=== PATIENT | male | born 1985 | race Caucasian/White ===

== ENCOUNTER 2016-08-20 23:58 | Emergency (ER) | payer SELFPAY ==
[2016-08-21] MEDS ORDERED: NORMAL SALINE 1000 ML 1,000 ML IV ONE (00:45)
[2016-08-21] MEDS ORDERED: KETOROLAC TROMETHAMINE INJ/PF 30 MG/1 ML SDV IV ONE (00:45)
[2016-08-21 03:40] VITALS: BP 96/62
== END 2016-08-21 00:45 | disposition left against medical advice (07) ==
LOC: ER 23:58
DX: Z53.21 Procedure and treatment not carried out due to patient leaving prior to being seen by health care provider (principal)

== ENCOUNTER 2016-11-07 20:11 | Emergency (ER) | payer SELFPAY ==
[2016-11-07] MEDS ORDERED: SULFAMETHOXAZOLE/TRIMETHOPRIM 800-160 MG TABLET PO ONE (20:40)
[2016-11-07 20:56] LABS: ABSOLUTE BASOPHILS # (AUTO) 0.1 10^3/uL (0.0-0.2); ABSOLUTE EOSINOPHILS # (AUTO) 0.2 10^3/uL (0.0-0.6); ABSOLUTE LYMPHOCYTES (AUTO) 1.9 10^3/uL (0.5-4.7); ABSOLUTE MONOCYTES (AUTO) 0.3 10^3/uL (0.1-1.4); ABSOLUTE NEUT (AUTO) 2.9 10^3/uL (1.7-8.2); BASOPHILS % (AUTO) 1.3 % (0-2); EOSINOPHILS % (AUTO) 3.9 % (0-6); HEMATOCRIT 36.9 % (37.9-51.0); HEMOGLOBIN 12.8 g/dL (13.5-17.0); HGB HCT DIFFERENCE 1.5; LYMPHOCYTES % (AUTO) 35.4 % (13-45); MEAN CORPUSCULAR HEMOGLOBIN 30.3 pg (27.0-33.4); MEAN CORPUSCULAR HGB CONC 34.6 g/dL (32.0-36.0); MEAN CORPUSCULAR VOLUME 88 fl (80-97); MONOCYTES % (AUTO) 5.7 % (3-13); RED BLOOD COUNT 4.21 10^6/uL (4.35-5.55); RED CELL DISTRIBUTION WIDTH 15.2 % (11.5-14.0); SEGMENTED NEUTROPHILS % (AUTO) 53.7 % (42-78); WHITE BLOOD COUNT 5.3 10^3/uL (4.0-10.5)
--- NOTE | 2016-11-07 21:00 | ER Document Report ---
ED Medical Screen (RME) - General Chief Complaint: Finger Injury Stated Complaint: FINGER PAIN Time Seen by Provider: 11/07/16 20:40 TRAVEL OUTSIDE OF THE [place] IN LAST 30 DAYS: No - HPI Notes: 11/07/16 21:00 Diabetic with a puncture wound to the left index finger - Related Data Allergies/Adverse Reactions: No Known Allergies Allergy (Verified 11/07/16 20:34) Home Medications: Current Home Medications Gabapentin 600 mg PO QID 11/07/16 [History] Insulin Glargine,Hum.rec.anlog [Lantus Insulin Inj 300 Unit/3 ml Pen] 30 unit SUBCUT BID 11/07/16 [History] Insulin Regular, Human [Humulin R (Pyxis) Insulin 100 Unit/ml 3Ml] 10 unit SUBCUT BID 11/07/16 [History] Past Medical History - Social History Chew tobacco use (# tins/day): No Frequency of alcohol use: Occasional Endocrine Medical History: Reports: Hx Diabetes Mellitus Type 1, Hx Diabetes Mellitus Type 2 Renal/ Medical History: Denies: Hx Peritoneal Dialysis Past Surgical History: Reports: Hx Orthopedic Surgery - L ganglion cyst - Immunizations Hx Diphtheria, Pertussis, Tetanus Vaccination: Yes - less than 5 years Review of Systems - Review of Systems Constitutional: Other - Puncture wound left index finger Physical Exam - Vital signs Vitals: Temp Pulse Resp BP Pulse Ox 98.4 F 98 16 137/96 H 99 11/07/16 20:20 11/07/16 20:20 11/07/16 20:20 11/07/16 20:20 11/07/16 20:20 - Respiratory Respiratory status: No respiratory distress Chest status: Nontender Course - Re-evaluation Re-evalutation: 11/07/16 21:00 I have greeted and performed a rapid initial assessment of this patient. A comprehensive ED assessment and evaluation of the patient, analysis of test results and completion of the medical decision making process will be conducted by additional ED providers. - Vital Signs Vital signs: Temp Pulse Resp BP Pulse Ox 98.4 F 98 16 137/96 H 99 11/07/16 20:20 11/07/16 20:20 11/07/16 20:20 11/07/16 20:20 11/07/16 20:20 - Laboratory Result Diagrams: 11/07/16 20:45 11/07/16 20:45 Laboratory results interpreted by me: 11/07/16 20:45 RBC 4.21 L Hgb 12.8 L Hct 36.9 L RDW 15.2 H
[2016-11-07 21:13] LABS: ANION GAP 9 (5-19); BLOOD UREA NITROGEN 18 mg/dL (7-20); CALCIUM 8.8 mg/dL (8.4-10.2); CARBON DIOXIDE 25 mmol/L (22-30); CHLORIDE 100 mmol/L (98-107); CREATININE RESULT 0.84 mg/dL (0.52-1.25); GLUCOSE 356 mg/dL (75-110); POTASSIUM 4.4 mmol/L (3.6-5.0); SODIUM 134.3 mmol/L (137-145)
[2016-11-07] MEDS ORDERED: IBUPROFEN 600 MG TABLET PO ONE (21:43)
[2016-11-07] MEDS ORDERED: CEPHALEXIN 500 MG CAPSULE PO ONE (21:43)
[2016-11-07] MEDS ORDERED: ACETAMINOPHEN 325 MG TABLET PO ONE (21:44)
--- NOTE | 2016-11-07 21:47 | ER Document Report ---
ED General - General Chief Complaint: Finger Injury Stated Complaint: FINGER PAIN Time Seen by Provider: 11/07/16 20:40 Notes: Patient is a 31-year-old male with a history of insulin-dependent diabetes who presents with concerns of left pointer finger pain. States that he sustained an injury using a tool 3 days ago and since that time has had progressively worsening dull, constant, aching pain to the dorsal mid aspect of the digit. Nothing improves or worsens the pain. He has not seen his primary care doctor regarding today's concerns. Denies a history of similar symptoms in the past. Denies any fever or constitutional symptoms. TRAVEL OUTSIDE OF THE [place] IN LAST 30 DAYS: No - Related Data Allergies/Adverse Reactions: No Known Allergies Allergy (Verified 11/07/16 20:34) Home Medications: Current Home Medications Gabapentin 600 mg PO QID 11/07/16 [History] Insulin Glargine,Hum.rec.anlog [Lantus Insulin Inj 300 Unit/3 ml Pen] 30 unit SUBCUT BID 11/07/16 [History] Insulin Regular, Human [Humulin R (Pyxis) Insulin 100 Unit/ml 3Ml] 10 unit SUBCUT BID 11/07/16 [History] Past Medical History - General Information source: Patient - Social History Smoking Status: Current Every Day Smoker Chew tobacco use (# tins/day): No Frequency of alcohol use: Occasional Lives with: Spouse/Significant other Family History: Reviewed & Not Pertinent Patient has suicidal ideation: No Patient has homicidal ideation: No Endocrine Medical History: Reports: Hx Diabetes Mellitus Type 1, Hx Diabetes Mellitus Type 2 Renal/ Medical History: Denies: Hx Peritoneal Dialysis Past Surgical History: Reports: Hx Orthopedic Surgery - L ganglion cyst - Immunizations Hx Diphtheria, Pertussis, Tetanus Vaccination: Yes - less than 5 years Review of Systems - Review of Systems Notes: Constitutional: Negative for fever. HENT: Negative for sore throat. Eyes: Negative for visual changes. Cardiovascular: Negative for chest pain. Respiratory: Negative for shortness of breath. Gastrointestinal: Negative for abdominal pain, vomiting or diarrhea. Genitourinary: Negative for dysuria. Musculoskeletal: Positive for left pointer finger pain Skin: Negative for rash. Neurological: Negative for headaches, weakness or numbness. 10 point ROS negative except as marked above and in HPI. Physical Exam - Vital signs Vitals: Temp Pulse Resp BP Pulse Ox 98.4 F 98 16 137/96 H 99 11/07/16 20:20 11/07/16 20:20 11/07/16 20:20 11/07/16 20:20 11/07/16 20:20 Interpretation: Normal Notes: PHYSICAL EXAMINATION: GENERAL: Well-appearing, well-nourished and in no acute distress. HEAD: Atraumatic, normocephalic. EYES: Pupils equal round and reactive to light, extraocular movements intact, sclera anicteric, conjunctiva are normal. ENT: nares patent, oropharynx clear without exudates. Moist mucous membranes. NECK: Normal range of motion, supple without lymphadenopathy LUNGS: Breath sounds clear to auscultation bilaterally and equal. No wheezes rales or rhonchi. HEART: Regular rate and rhythm without murmurs ABDOMEN: Soft, nontender, normoactive bowel sounds. No guarding, no rebound. No masses appreciated. EXTREMITIES: Full flexion extension at the DIP, PIP and MCP of the left second digit. No resting flexion or extension. No circumstantial swelling. NEUROLOGICAL: No focal neurological deficits. Moves all extremities spontaneously and on command. PSYCH: Normal mood, normal affect. SKIN: Warm, Dry, normal turgor, there is mild erythema over the dorsal aspect of the left second digit and pain on palpation of this area Course - Re-evaluation Re-evalutation: 11/07/16 21:45 Patient presents with erythema and pain to the left second digit on the radial aspect of the base the finger just above the MCP. No evidence of flexor tenosynovitis. He is able to fully extend the digit, is not resting flexion and there is no circumferential swelling. No pain over the flexor sheath. Vitals otherwise within normal limits. Labs demonstrate hyperglycemia without evidence of diabetic ketoacidosis. Patient was started cephalexin and TMP-SMX. X-ray without evidence of retained foreign body. At this time will discharge with return precautions and follow-up recommendations. Verbal discharge instructions given a the bedside and opportunity for questions given. Medication warnings reviewed. Patient is in agreement with this plan and has verbalized understanding of return precautions and the need for primary care follow-up in the next 24-72 hours. - Vital Signs Vital signs: Temp Pulse Resp BP Pulse Ox 98.1 F 96 18 117/64 95 11/07/16 22:49 11/07/16 22:49 11/07/16 22:49 11/07/16 22:49 11/07/16 22:49 - Laboratory Result Diagrams: 11/07/16 20:45 11/07/16 20:45 Laboratory results interpreted by me: 11/07/16 11/07/16 11/07/16 20:45 20:45 22:42 RBC 4.21 L Hgb 12.8 L Hct 36.9 L RDW 15.2 H Sodium 134.3 L Glucose 356 H POC Glucose 64 L - Diagnostic Test Radiology reviewed: Image reviewed, Reports reviewed Radiology results interpreted by me: 11/07/16 21:47 Left hand x-ray: No acute fracture or retained foreign body Discharge - Discharge Clinical Impression: Cellulitis of finger of left hand Condition: Good Disposition: HOME, SELF-CARE Additional Instructions: The rash is likely due to infection of your skin. You need to take the antibiotics as prescribed. Do not stop even if the rash goes away until you have completed all the antibiotics. You need to return to emergency department if the redness spreads outside of this area by more than 2 cm in any direction. You also need to return if your finger is unable to be straightened, worsening pain, or increased swelling to the digit You should also return if you develop fevers with temperature greater than 101, persistent vomiting, worsening pain, or have any other symptoms that are concerning to you. For your pain: Take ibuprofen 600 mg with Tylenol 1000 mg every 6 hours. Apply ice to the area as needed for pain that is not controlled by ibuprofen with Tylenol Prescriptions: Cephalexin Monohydrate [Keflex 500 mg Capsule] 500 mg PO QID #28 capsule Sulfamethoxazole/Trimethoprim [Bactrim Ds Tablet] 1 each PO BID #14 tablet
[2016-11-07 23:43] VITALS: BP 117/64
== END 2016-11-07 22:52 | disposition home or self-care (01) ==
LOC: ER 20:11
DX: L03.012 Cellulitis of left finger (principal); M79.645 Pain in left finger(s); E11.65 Type 2 diabetes mellitus with hyperglycemia; Z79.4 Long term (current) use of insulin; F17.200 Nicotine dependence, unspecified, uncomplicated
CPT/HCPCS: 36415; 80048; 82962; 85025; 87040; 99283

== ENCOUNTER 2018-04-03 18:39 | Inpatient (IN) | payer SELFPAY ==
[2018-04-03] MEDS ORDERED: RINGERS SOLUTION,LACTATED 2,000 ML IV ONE (19:53)
[2018-04-03] MEDS ORDERED: ONDANSETRON HCL INJ/PF 4 MG/2 ML SDV IV ONE ×2 (19:54→22:42)
[2018-04-03 20:00] LABS: VENOUS BLOOD BASE EXCESS -17.3 mmol/L; VENOUS BLOOD HCO3 11.3 mmol/L (20-32); VENOUS BLOOD PCO2 36.1 mmHg (35-63)
[2018-04-03 20:01] LABS: ABSOLUTE BASOPHILS # (AUTO) 0.1 10^3/uL (0.0-0.2); ABSOLUTE LYMPHOCYTES (AUTO) 1.5 10^3/uL (0.5-4.7); ABSOLUTE MONOCYTES (AUTO) 0.9 10^3/uL (0.1-1.4); ABSOLUTE NEUT (AUTO) 13.5 10^3/uL (1.7-8.2); BASOPHILS % (AUTO) 0.4 % (0-2); HEMATOCRIT 44.7 % (37.9-51.0); HEMOGLOBIN 14.8 g/dL (13.5-17.0); LYMPHOCYTES % (AUTO) 9.3 % (13-45); MEAN CORPUSCULAR HEMOGLOBIN 31.3 pg (27.0-33.4); MEAN CORPUSCULAR HGB CONC 33.1 g/dL (32.0-36.0); MEAN CORPUSCULAR VOLUME 95 fl (80-97); MONOCYTES % (AUTO) 5.9 % (3-13); PLATELET COUNT 607 10^3/uL (150-450); RED BLOOD COUNT 4.73 10^6/uL (4.35-5.55); RED CELL DISTRIBUTION WIDTH 14.5 % (11.5-14.0); SEGMENTED NEUTROPHILS % (AUTO) 84.4 % (42-78); TOTAL CELLS COUNTED % (AUTO) 100 %; WHITE BLOOD COUNT 16.1 10^3/uL (4.0-10.5)
--- NOTE | 2018-04-03 20:04 | ER Document Report ---
ED Blood Sugar Problem - General TRAVEL OUTSIDE OF THE [place] IN LAST 30 DAYS: No <CLARIBEL TAYLOR - Last Filed: 04/03/18 23:19> <JHOANA AREVALO - Last Filed: 04/04/18 02:40> - General Chief Complaint: High Blood Sugar Stated Complaint: ABDOMINAL PAIN Time Seen by Provider: 04/03/18 19:33 Notes: Patient is a 33 year-old male who presents with a 3 day history of nausea and vomiting and is now stating he is having abdominal pain possibly due to his blood sugars being high. He is an insulin dependent diabetic who states he is currently taking his medications as prescribed. He stated he has not checked his blood sugar these past few days, so he does not know what his recent blood sugars have been. His accucheck this evening read "HI." Patient also states he has a history of IV drug abuse, but states he is not currently using. Patient denies fever or chills. (CLARIBEL TAYLOR) Patient described the pain as constant in nature, and non-radiating, and rated 4 /5. He had associated nausea and vomiting with this symptoms. (JHOANA AREVALO) - Related Data Allergies/Adverse Reactions: No Known Allergies Allergy (Verified 11/07/16 20:34) Past Medical History - General Information source: Patient - Social History Smoking Status: Current Every Day Smoker Smoking Education Provided: Yes - <3 min Frequency of alcohol use: Social Lives with: Alone Family History: Reviewed & Not Pertinent Endocrine Medical History: Reports: Hx Diabetes Mellitus Type 1 Renal/ Medical History: Denies: Hx Peritoneal Dialysis Past Surgical History: Reports: Hx Orthopedic Surgery - L ganglion cyst - Immunizations Hx Diphtheria, Pertussis, Tetanus Vaccination: Yes - less than 5 years <CLARIBEL TAYLOR - Last Filed: 04/03/18 23:19> Review of Systems - Review of Systems Constitutional: See HPI EENT: No symptoms reported Cardiovascular: No symptoms reported Respiratory: No symptoms reported Gastrointestinal: See HPI Genitourinary: No symptoms reported Male Genitourinary: No symptoms reported Musculoskeletal: No symptoms reported Skin: No symptoms reported Hematologic/Lymphatic: No symptoms reported Neurological/Psychological: No symptoms reported <CLARIBEL TAYLOR - Last Filed: 04/03/18 23:19> <JHOANA AREVALO - Last Filed: 04/04/18 02:40> - Review of Systems Notes: Unless otherwise stated in this report the patient's positive and negative responses for review of systems for constitutional, eyes, ENT, cardiovascular, respiratory, gastrointestinal, neurological, genitourinary, musculoskeletal, and integumentary systems and related systems to the presenting problem are either as stated in the HPI or were not pertinent or were negative for the symptoms and/or complaints related to the presenting medical problem. (JHOANA AREVALO) - Vital signs Vitals: Temp Pulse Resp BP Pulse Ox 97.7 F 108 H 20 122/80 100 04/03/18 19:02 04/03/18 19:02 04/03/18 19:02 04/03/18 19:02 04/03/18 19:02 Course - Laboratory Result Diagrams: 04/03/18 19:44 04/03/18 19:44 <CLARIBEL TAYLOR - Last Filed: 04/03/18 23:19> - Laboratory Result Diagrams: 04/03/18 19:44 04/03/18 19:44 <JHOANA AREVALO - Last Filed: 04/04/18 02:40> - Re-evaluation Re-evalutation: 04/03/18 20:30 Patient appears critically ill at this time with a heart rate tachycardic in the 120s. Labs have been reviewed with a pH of 7.11, bicarb of 11.3, potassium of 6.6. BUN and creatinine shows acute renal insufficiency with a BUN of 43 and a creatinine of 1.49. Patient shows a leukocytosis of 16, 000. 04/03/18 20:45 Upon reevaluation patient was lying comfortably in bed. Patient stated his abdominal pain has improved. Labs have been reviewed and insulin drip has been ordered along with calcium gluconate for hyperkalemia. 04/03/18 22:23 Nursing staff informed me that patient's Accu-Chek was still high. Verbal orders given to increase insulin drip to 8.8 units/h. 20-gauge IV started in the right forearm. 04/03/18 22:38 Report given to hospitalist, Dr. Neville. Patient has been accepted to ICU. (CLARIBEL TAYLOR) - Vital Signs Vital signs: Temp Pulse Resp BP Pulse Ox 98.5 F 120 H 16 121/93 H 100 04/04/18 00:55 04/04/18 00:55 04/04/18 00:55 04/04/18 00:55 04/04/18 00:55 - Laboratory Laboratory results interpreted by me: 04/03/18 04/03/18 04/03/18 19:44 19:44 19:44 WBC 16.1 H RDW 14.5 H Plt Count 607 H Seg Neutrophils % 84.4 H Lymphocytes % 9.3 L Absolute Neutrophils 13.5 H VBG pH 7.11 L* VBG HCO3 11.3 L Sodium 129.5 L Potassium 6.6 H* Chloride 83 L Carbon Dioxide 11 L Anion Gap 36 H BUN 43 H Creatinine 1.49 H Est GFR (Non-Af Amer) 55 L Glucose 935 H* Direct Bilirubin 0.6 H Alkaline Phosphatase 138 H Urine Glucose (UA) Urine Ketones 04/03/18 22:28 WBC RDW Plt Count Seg Neutrophils % Lymphocytes % Absolute Neutrophils VBG pH VBG HCO3 Sodium Potassium Chloride Carbon Dioxide Anion Gap BUN Creatinine Est GFR (Non-Af Amer) Glucose Direct Bilirubin Alkaline Phosphatase Urine Glucose (UA) >=500 H Urine Ketones 80 H - EKG Interpretation by Me Additional EKG results interpreted by me: 04/03/18 1946: Sinus tachycardia. Rate 107; AK 148; QRS 92; QT 340; QTC 454. (CLARIBEL TAYLOR) Critical Care Note - Critical Care Note Total time excluding time spent on procedures (mins): 40 - DKA; hyperkalemia; acute renal insufficiency <CLARIBEL TAYLOR - Last Filed: 04/03/18 23:19> <JHOANA AREVALO - Last Filed: 04/04/18 02:40> - Critical Care Note Comments: Please allow 40 units of critical care time due to multiple re-evaluations of this patient. Patient's emergency course included insulin drip, rehydration, and calcium gluconate infusion to treat his hyperkalemia, DKA, acute renal insufficiency. Consultation and admission to ICU. (CLARIBEL TAYLOR) Critical care time 40 exclusive from separate billable procedures for a patient requiring complex medical decision making, and high potential for clinical deterioration. Time spent obtaining history from patient or surrogate, discussions with consultants, development of treatment plan with patient or surrogate, evaluation of patient's response to treatment, examination of patient , ordering and performing treatments and interventions, ordering and review of laboratory studies, re-evaluation of patient's condition, ordering and review of radiographic studies and review of old charts (JHOANA AREVALO) Discharge - Discharge Admitting Provider: Hospitalist Unit Admitted: ICU <CLARIBEL TAYLOR - Last Filed: 04/03/18 23:19> <JHOANA AREVALO - Last Filed: 04/04/18 02:40> - Discharge Clinical Impression: Hyperkalemia, Tachycardia, Acute renal insufficiency Diabetic ketoacidosis Qualifiers: Diabetes mellitus type: type 1 Diabetes mellitus complication detail: without coma Qualified Code(s): E10.10 - Type 1 diabetes mellitus with ketoacidosis without coma Vomiting Qualifiers: Vomiting type: unspecified Vomiting Intractability: non-intractable Nausea presence: with nausea Qualified Code(s): R11.2 - Nausea with vomiting, unspecified Condition: Critical Disposition: ADMITTED INPATIENT
[2018-04-03 20:07] LABS: VENOUS BLOOD PH 7.11 (7.30-7.42)
[2018-04-03 20:15] LABS: ALANINE AMINOTRANSFERASE 48 U/L (21-72); ALBUMIN 4.7 g/dL (3.5-5.0); ALKALINE PHOSPHATASE 138 U/L (38-126); ASPARTATE AMINO TRANSFERASE 26 U/L (17-59); BILIRUBIN,DIRECT 0.6 mg/dL (0.0-0.4); BILIRUBIN,TOTAL 0.7 mg/dL (0.2-1.3); BLOOD UREA NITROGEN 43 mg/dL (7-20); CALCIUM 9.9 mg/dL (8.4-10.2); TOTAL PROTEIN 7.4 g/dL (6.3-8.2)
[2018-04-03 20:20] LABS: CARBON DIOXIDE 11 mmol/L (22-30); CHLORIDE 83 mmol/L (98-107); SODIUM 129.5 mmol/L (137-145)
[2018-04-03 20:23] LABS: ANION GAP 36 (5-19)
[2018-04-03 20:27] LABS: GLUCOSE 935 mg/dL (75-110); POTASSIUM 6.6 mmol/L (3.6-5.0)
[2018-04-03] MEDS ORDERED: INSULIN REG, HUMAN 100 UNIT/ML 3 ML VIAL (PYX) IV ONE ×2 (20:27→23:46)
[2018-04-03] MEDS ORDERED: CALCIUM GLUCONATE 1000 MG/10 ML INJ IV ONE (20:29)
[2018-04-03] MEDS ORDERED: RINGERS SOLUTION,LACTATED 1,000 ML IV PRN (22:39)
[2018-04-03] MEDS ORDERED: NORMAL SALINE 1000 ML 1,000 ML IV PRN (22:41)
[2018-04-03 22:42] LABS: APPEARANCE,URINE CLEAR; BILIRUBIN,URINE NEGATIVE (NEGATIVE); COLOR,URINE STRAW; GLUCOSE, URINE >=500 mg/dL (NEGATIVE); KETONES,URINE 80 mg/dL (NEGATIVE); LEUKOCYTE ESTERASE,URINE NEGATIVE (NEGATIVE); NITRITE,URINE NEGATIVE (NEGATIVE); PROTEIN,URINE NEGATIVE (NEGATIVE); URINE SPECIFIC GRAVITY 1.022; UROBILINOGEN,URINE NEGATIVE mg/dL (<2.0)
[2018-04-03] MEDS ORDERED: FAMOTIDINE INJ/PF 20 MG/2 ML SDV IV ONE (23:00)
--- NOTE | 2018-04-03 23:16 | RADIOLOGY REPORT (SQ) ---
Portable chest HISTORY: Shortness of breath. FINDINGS: The heart is not enlarged. No consolidation or pleural effusion. No pulmonary edema or pneumothorax. IMPRESSION: No acute disease.
[2018-04-03] MEDS ORDERED: INSULIN REG, HUMAN 100 UNIT/ML 3 ML VIAL (PYX) SUBCUT ONE (23:46)
[2018-04-04] MEDS ORDERED: DEXTROSE 5%-1/2 NORMAL SALINE 1,000 ML IV PRN (03:14)
[2018-04-04 03:28] LABS: BLOOD UREA NITROGEN 49 mg/dL (7-20); CALCIUM 10.2 mg/dL (8.4-10.2); GLUCOSE 189 mg/dL (75-110)
[2018-04-04 03:33] LABS: CHLORIDE 97 mmol/L (98-107); SODIUM 141.5 mmol/L (137-145)
[2018-04-04] MEDS ORDERED: DEXTROSE 40% GEL 15 GM TUBE PO PRN ×3 (03:34→09:58)
[2018-04-04] MEDS ORDERED: DEXTROSE 50%-WATER SYRINGE 25 GM/50 ML DOSE IV PRN (03:34)
[2018-04-04] MEDS ORDERED: DEXTROSE 40% GEL 15 GM TUBE X 2 PO PRN (03:34)
[2018-04-04] MEDS ORDERED: INSULIN, REGULAR 100 UNIT/100 ML NORMAL SALINE IV PRN ×2 (03:34)
[2018-04-04] MEDS ORDERED: DEXTROSE 50%-WATER SYRINGE 12.5 GM/25 ML DOSE IV PRN (03:34)
[2018-04-04] MEDS ORDERED: GLUCAGON,HUMAN RECOMB 1 MG INJ IM PRN ×2 (03:34→09:58)
[2018-04-04 03:38] LABS: ANION GAP 22 (5-19); POTASSIUM 4.8 mmol/L (3.6-5.0)
[2018-04-04 04:03] LABS: CARBON DIOXIDE 23 mmol/L (22-30)
[2018-04-04 06:15] LABS: URINE AMPHETAMINES SCREEN NEGATIVE; URINE BARBITURATES SCREEN NEGATIVE; URINE BENZODIAZEPINES SCREEN NEGATIVE; URINE COCAINE SCREEN NEGATIVE; URINE MARIJUANA (THC) SCREEN NEGATIVE; URINE METHADONE SCREEN NEGATIVE; URINE PHENCYCLIDINE SCREEN NEGATIVE
[2018-04-04 09:23] LABS: ANION GAP 14 (5-19); BLOOD UREA NITROGEN 46 mg/dL (7-20); CALCIUM 9.7 mg/dL (8.4-10.2); CARBON DIOXIDE 31 mmol/L (22-30); CHLORIDE 96 mmol/L (98-107); GLUCOSE 147 mg/dL (75-110); POTASSIUM 4.4 mmol/L (3.6-5.0); SODIUM 141.2 mmol/L (137-145)
[2018-04-04] MEDS ORDERED: DEXTROSE 50%-WATER 25 GM/50 ML DISP.SYRIN IV PRN ×2 (09:58)
[2018-04-04] MEDS ORDERED: FAMOTIDINE INJ/PF 20 MG/2 ML SDV IV SCH (10:00)
--- NOTE | 2018-04-04 10:27 | PDOC PROGRESS REPORT ---
Subjective Progress Note for:: 04/04/18 Subjective:: Patient is a 33 year-old male who presented with a 3 day history of nausea and vomiting and abdominal pain. He described the pain as a constant, non-radiating , deep aching of 8/10severity. He has not identified any aggravating or ameliorating factors for his abdominal pain, but admits that he has had similar pain in the past when he has developed diabetic ketoacidosis. He had associated nausea and vomiting with this symptoms, but he denies fever or chills. He is an insulin dependent diabetic who states he is currently taking his insulins as prescribed. He has not checked his blood sugar for the 3-4 days MILK TESTER, but his accucheck just MILK TESTER read "HI." He has a history of IV drug abuse, but he is not currently using. 04/04/18: Umair is awake and alert today and states he is hungry and would really like to have something to eat and drink. He feels like he is back to his usual self and his blood sugar has been under 200 for the last several readings. His insulin drip will be discontinued he will be started on a regular diabetic diet (carb 5) and will resume his usual insulin regiment with 6 units of lispro prior to meals and at bedtime and 30 units of Lantus twice daily. He will also be maintained on a supplemental sliding scale lispro before meals and at bedtime. His activity level will be increased and if he continues to feel well he will be discharged later today or tomorrow. Reason For Visit: DKA Physical Exam Vital Signs: Temp Pulse Resp BP Pulse Ox 98.1 F 120 H 12 118/83 100 04/04/18 05:09 04/04/18 00:55 04/04/18 06:00 04/04/18 04:49 04/04/18 06:00 Intake & Output 04/03/18 04/04/18 04/05/18 06:59 06:59 06:59 Intake Total 48 Output Total 300 Balance -252 Weight 63.7 kg General appearance: PRESENT: no acute distress, cooperative Head exam: PRESENT: atraumatic, normocephalic Eye exam: PRESENT: conjunctiva pink, EOMI. ABSENT: conjunctival injection, nystagmus, periorbital swelling, scleral icterus Ear exam: PRESENT: normal external ear exam. ABSENT: bleeding, drainage Mouth exam: PRESENT: dry mucosa, tongue midline Neck exam: ABSENT: thyromegaly, tracheal deviation Respiratory exam: PRESENT: clear to auscultation aris, symmetrical, unlabored Cardiovascular exam: PRESENT: RRR. ABSENT: bradycardia, clicks, diastolic murmur, gallop, rubs, systolic murmur, tachycardia Vascular exam: PRESENT: normal capillary refill. ABSENT: pallor GI/Abdominal exam: PRESENT: normal bowel sounds, soft Rectal exam: PRESENT: deferred Extremities exam: ABSENT: joint swelling, pedal edema Musculoskeletal exam: PRESENT: full ROM, normal inspection - [id number] Neurological exam: PRESENT: alert, oriented to person, oriented to place, oriented to time, oriented to situation, CN II-XII grossly intact. ABSENT: motor sensory deficit - [id number] Psychiatric exam: PRESENT: appropriate affect, normal mood Skin exam: ABSENT: jaundice, rash, urticaria Results Laboratory Results: 04/04/18 08:48 04/04/18 04/04/18 02:57 08:48 Sodium 141.5 141.2 Potassium 4.8 D 4.4 Chloride 97 L 96 L Carbon Dioxide 23 D 31 H Anion Gap 22 H 14 BUN 49 H 46 H Creatinine 1.19 1.05 Est GFR ( Amer) > 60 > 60 Est GFR (Non-Af Amer) > 60 > 60 Glucose 189 H 147 H Calcium 10.2 9.7 Impressions: Chest X-Ray 04/03/18 22:33 IMPRESSION: No acute disease. Assessment & Plan - Diagnosis (1) Diabetic ketoacidosis Qualifiers: Diabetes mellitus type: type 1 Diabetes mellitus complication detail: without coma Qualified Code(s): E10.10 - Type 1 diabetes mellitus with ketoacidosis without coma Is this a current diagnosis for this admission?: Yes Plan: Patient was treated initially with an insulin drip and then subsequently added IV fluids containing dextrose to accompany his insulin drip. His blood sugar stabilized and his electrolytes returned to a normal balance over the first 12 hours of treatment. His aggressive therapy will be discontinued today and he will be started back on a diabetic diet with his usual insulin regimen as well as sliding scale supplemental insulin if needed. We will continue to monitor his blood sugar and will monitor his lab work on a daily basis for as long as he is hospitalized. Discharge may be planned as early as 04/04/2018. (2) Acute renal insufficiency Is this a current diagnosis for this admission?: Yes Plan: Patient's creatinine was noted to be elevated at 1.46 on admission and it has returned to normal levels after IV rehydration. This will be followed with daily laboratory for as long as patient is hospitalized. (3) Hyperkalemia Is this a current diagnosis for this admission?: Yes Plan: Patient's potassium was elevated as would be expected in acute diabetic ketoacidosis and has returned to normal values with rehydration and correction of the severe hyperglycemia. Potassium level will be monitored on a daily basis throughout the patient's hospitalization. (4) Tachycardia Is this a current diagnosis for this admission?: Yes Plan: Patient was initially tachycardic however after IV fluid support to replace his vascular volume his tachycardia has resolved his vital signs have remained stable. Patient's vital signs will be monitored on an ongoing basis during the rest of his hospitalization. (5) Vomiting Qualifiers: Vomiting type: unspecified Vomiting Intractability: non-intractable Nausea presence: with nausea Qualified Code(s): R11.2 - Nausea with vomiting, unspecified Is this a current diagnosis for this admission?: Yes Plan: Patient's nausea and vomiting were treated with intravenous vascular volume replenishment as well as reduction and severe hyperglycemia. Additionally he was given antiemetics and he has responded well to this combination of therapies with the return of his appetite and strong desire to consume oral fluids. Patient will have as needed antiemetic available throughout the remainder of his hospital course. - Time Time Spent with patient: 35 or more minutes Anticipated discharge: Home Within: within 24 hours
--- NOTE | 2018-04-04 10:51 | Physician Advisory Note ---
Physician Advisor ProgressNote .: Pursuant to the plan for [facility], I have reviewed the medical record for this patient. Physician Advisor Statement: Please consider documenting, if you agree: 1. "Acute Kidney Injury due to ___, baseline Cr = 0.84" (saying "___ insufficiency" is meaningless for coding, does not capture the true degree of illness being managed) Thanks! We appreciate your careful documentation. CK
[2018-04-04] MEDS ORDERED: INSULIN GLARGINE,HUM.REC.ANLOG 300 UNIT/3 ML INSULN.PEN SUBCUT SCH (11:00)
[2018-04-04] MEDS ORDERED: INSULIN LISPRO 6 UNIT SQ SCH (11:00)
--- NOTE | 2018-04-04 11:12 | EKG REPORT ---
SEVERITY:- OTHERWISE NORMAL ECG - SINUS TACHYCARDIA : Confirmed by: Mikayla Gardner 04-Apr-2018 11:11:38
[2018-04-04] MEDS: INSULIN GLARGINE,HUM.REC.ANLOG 1,000 UNIT/10 ML UNIT SUBCUT SCH ×2 (11:40→22:57)
[2018-04-04] MEDS: ENOXAPARIN SODIUM INJ 40 MG/0.4 ML DISP.SYRIN SUBCUT SCH (11:40)
[2018-04-04] MEDS: INSULIN LISPRO 100 UNIT/ML 3 ML VIAL SUBCUT SCH ×3 (11:41→22:58)
[2018-04-04] MEDS: INSULIN LISPRO 100 UNIT/ML 3 ML VIAL SUBCUT PRN ×2 (11:42→17:46)
[2018-04-04] MEDS ORDERED: MORPHINE SULFATE 10 MG/ML INJ ONE (12:07)
[2018-04-04 13:38] LABS: ANION GAP 16 (5-19); BLOOD UREA NITROGEN 36 mg/dL (7-20); CALCIUM 8.9 mg/dL (8.4-10.2); CARBON DIOXIDE 27 mmol/L (22-30); CHLORIDE 91 mmol/L (98-107); GLUCOSE 367 mg/dL (75-110); POTASSIUM 4.8 mmol/L (3.6-5.0); SODIUM 134.1 mmol/L (137-145)
[2018-04-04 17:40] LABS: ANION GAP 10 (5-19); BLOOD UREA NITROGEN 30 mg/dL (7-20); CALCIUM 8.7 mg/dL (8.4-10.2); CARBON DIOXIDE 29 mmol/L (22-30); CHLORIDE 90 mmol/L (98-107); POTASSIUM 4.9 mmol/L (3.6-5.0); SODIUM 129.3 mmol/L (137-145)
[2018-04-04] MEDS: MORPHINE SULFATE 10 MG/ML INJ IV PRN ×2 (17:46→21:58)
[2018-04-04 17:55] LABS: GLUCOSE 404 mg/dL (75-110)
[2018-04-04] MEDS: FAMOTIDINE 20 MG TABLET PO SCH (18:00)
[2018-04-04] MEDS: LANSOPRAZOLE 30 MG TAB.RAP.DR PO SCH (18:00)
--- NOTE | 2018-04-04 20:55 | PDOC H&P ---
History of Present Illness Admission Date/PCP: 04/03/18 22:50 Patient complains of: Elevated blood sugars History of Present Illness: KWABENA DONOVAN JR is a 33 year old male presenting to the emergency department secondary to 3-day history of nausea and vomiting. States he is a long- standing diabetic but acknowledges being noncompliant with his regimen. States nausea and vomiting has been associated with abdominal pain that is generalized and diffuse, nonradiating, constant in nature, rated 3 out of 5. States blood sugar readings have been registering as "high". Patient is agitated, and uncooperative. Has a past medical history of IV drug abuse but states he is not currently using any illicit substances. Is alert oriented x3. Denies fever , denies chills. Past Medical History Endocrine Medical History: Reports: Diabetes Mellitus Type 1, Diabetes Mellitus Type 2 Past Surgical History Past Surgical History: Reports: Orthopedic Surgery - L ganglion cyst Social History Information Source: Patient Lives with: Alone Smoking Status: Current Every Day Smoker Cigarettes Packs Per Day: 1 Last Time Smoked: 04/03/18 Frequency of Alcohol Use: Occasional Hx Recreational Drug Use: Yes Drugs: Marijuana, Methadone Hx Prescription Drug Abuse: No Family History Family History: Reviewed & Not Pertinent Parental Family History Reviewed: No Children Family History Reviewed: No Sibling(s) Family History Reviewed.: No Medication/Allergy Home Medications: Insulin Glargine,Hum.rec.anlog [Lantus Insulin Inj 300 Unit/3 ml Pen] 30 unit SUBCUT Q12 04/04/18 Insulin Lispro [Humalog] 6 unit SQ QID 04/04/18 Allergies/Adverse Reactions: No Known Allergies Allergy (Verified 11/07/16 20:34) Review of Systems Constitutional: PRESENT: fatigue, weakness. ABSENT: chills, fever(s) Gastrointestinal: PRESENT: abdominal pain, nausea, vomiting Musculoskeletal: ABSENT: back pain Neurological: ABSENT: abnormal gait, confusion, numbness, tingling Physical Exam Vital Signs: Temp Pulse Resp BP Pulse Ox 99.7 F 90 18 135/85 H 100 04/04/18 18:11 04/04/18 12:55 04/04/18 18:00 04/04/18 17:49 04/04/18 18:00 Intake & Output 04/03/18 04/04/18 04/05/18 06:59 06:59 06:59 Intake Total 48 3014 Output Total 300 600 Balance -252 2414 Weight 63.7 kg General appearance: PRESENT: mild distress - agitated Head exam: PRESENT: atraumatic, normocephalic Eye exam: PRESENT: conjunctiva pink, EOMI, PERRLA. ABSENT: scleral icterus Mouth exam: PRESENT: dry mucosa, tongue midline. ABSENT: laceration Neck exam: ABSENT: carotid bruit, JVD, lymphadenopathy, thyromegaly Respiratory exam: PRESENT: clear to auscultation aris. ABSENT: rales, rhonchi, wheezes Cardiovascular exam: PRESENT: +S1, +S2, tachycardia. ABSENT: diastolic murmur, rubs, systolic murmur GI/Abdominal exam: PRESENT: normal bowel sounds, soft, tenderness. ABSENT: distended, guarding, mass, organolmegaly, rebound Extremities exam: PRESENT: full ROM. ABSENT: calf tenderness, clubbing, pedal edema Neurological exam: PRESENT: alert, awake, oriented to person, oriented to place , oriented to time, oriented to situation, CN II-XII grossly intact. ABSENT: motor sensory deficit Psychiatric exam: PRESENT: agitated Results Laboratory Results: 04/04/18 17:03 04/04/18 04/04/18 04/04/18 02:57 08:48 13:07 Sodium 141.5 141.2 134.1 L Potassium 4.8 D 4.4 4.8 Chloride 97 L 96 L 91 L Carbon Dioxide 23 D 31 H 27 Anion Gap 22 H 14 16 BUN 49 H 46 H 36 H Creatinine 1.19 1.05 0.90 Est GFR ( Amer) > 60 > 60 > 60 Est GFR (Non-Af Amer) > 60 > 60 > 60 Glucose 189 H 147 H 367 H Calcium 10.2 9.7 8.9 04/04/18 17:03 Sodium 129.3 L Potassium 4.9 Chloride 90 L Carbon Dioxide 29 Anion Gap 10 BUN 30 H Creatinine 0.81 Est GFR ( Amer) > 60 Est GFR (Non-Af Amer) > 60 Glucose 404 H* Calcium 8.7 Impressions: Chest X-Ray 04/03/18 22:33 IMPRESSION: No acute disease. Assessment & Plan - Diagnosis (1) Diabetic ketoacidosis Qualifiers: Diabetes mellitus type: type 1 Diabetes mellitus complication detail: without coma Qualified Code(s): E10.10 - Type 1 diabetes mellitus with ketoacidosis without coma Is this a current diagnosis for this admission?: Yes (2) Acute renal insufficiency Is this a current diagnosis for this admission?: Yes (3) Hyperkalemia Is this a current diagnosis for this admission?: Yes (4) Vomiting Qualifiers: Vomiting type: unspecified Vomiting Intractability: non-intractable Nausea presence: with nausea Qualified Code(s): R11.2 - Nausea with vomiting, unspecified Is this a current diagnosis for this admission?: Yes - Time Time Spent: 50 to 70 Minutes Smoking Cessation Education: 3 to 10 minutes Medications reviewed and adjusted accordingly: Yes Anticipated discharge: Home Within: Other - Inpatient Certification Medical Necessity: Need Close Monitoring Due to Risk of Patient Decompensation - Plan Summary Plan Summary: 33-year-old male to be admitted to ICU secondary to DKA. Continue volume resuscitation and frequent blood sugar checks. Patient currently on insulin drip which was initiated in the emergency department, to be titrated to maintain blood sugars between 150 and 250. Will switch patient over to D5 half NS with supplemental potassium. I will give the patient to start eating once blood sugars between 150-250. BMP every 4h. Patient is extremely agitated, no family present at bedside. Patient is planning to leave AGAINST MEDICAL ADVICE. Continue with Zofran as needed nausea, vomiting. Tylenol as needed pain, fever. Patient will need diabetic education upon discharge. We will continue to monitor closely and adjust accordingly. Tobacco cessation highly encouraged.
[2018-04-04 21:50] LABS: ANION GAP 12 (5-19); BLOOD UREA NITROGEN 26 mg/dL (7-20); CALCIUM 9.1 mg/dL (8.4-10.2); CARBON DIOXIDE 29 mmol/L (22-30); CHLORIDE 92 mmol/L (98-107); GLUCOSE 139 mg/dL (75-110); POTASSIUM 4.4 mmol/L (3.6-5.0); SODIUM 133.3 mmol/L (137-145)
[2018-04-04] MEDS ORDERED: CEFTRIAXONE 1 GM/D5W RTU 1 GM/50 ML RTUPB IV ONE (23:00)
[2018-04-05] MEDS ORDERED: CEFTRIAXONE INJ 1000 MG VIAL ONE (00:19)
[2018-04-05] MEDS: MORPHINE SULFATE 10 MG/ML INJ IV PRN ×6 (01:39→21:51)
[2018-04-05] MEDS: LANSOPRAZOLE 30 MG TAB.RAP.DR PO SCH ×4 (05:38→21:51)
[2018-04-05] MEDS ORDERED: CEFTRIAXONE 1 GM/D5W RTU 1 GM/50 ML RTUPB IV SCH (10:00)
[2018-04-05] MEDS: FAMOTIDINE 20 MG TABLET PO SCH ×4 (11:35→21:51)
[2018-04-05] MEDS: INSULIN LISPRO 100 UNIT/ML 3 ML VIAL SUBCUT SCH ×4 (11:36→22:14)
[2018-04-05] MEDS: INSULIN GLARGINE,HUM.REC.ANLOG 1,000 UNIT/10 ML UNIT SUBCUT SCH ×2 (11:36→22:15)
[2018-04-05] MEDS: INSULIN LISPRO 100 UNIT/ML 3 ML VIAL SUBCUT PRN (11:37)
[2018-04-05] MEDS: ENOXAPARIN SODIUM INJ 40 MG/0.4 ML DISP.SYRIN SUBCUT SCH (11:37)
--- NOTE | 2018-04-05 11:56 | PDOC PROGRESS REPORT ---
Subjective Progress Note for:: 04/05/18 Subjective:: Patient is a 33 year-old male who presented with a 3 day history of nausea and vomiting and abdominal pain. He described the pain as a constant, non-radiating , deep aching of 8/10severity. He has not identified any aggravating or ameliorating factors for his abdominal pain, but admits that he has had similar pain in the past when he has developed diabetic ketoacidosis. He had associated nausea and vomiting with this symptoms, but he denies fever or chills. He is an insulin dependent diabetic who states he is currently taking his insulins as prescribed. He has not checked his blood sugar for the 3-4 days MEDICAL RECORDS COORDINATOR, but his accucheck just MEDICAL RECORDS COORDINATOR read "HI." He has a history of IV drug abuse, but he is not currently using. 04/04/18: Umair is awake and alert today and states he is hungry and would really like to have something to eat and drink. He feels like he is back to his usual self and his blood sugar has been under 200 for the last several readings. His insulin drip will be discontinued he will be started on a regular diabetic diet (carb 5) and will resume his usual insulin regiment with 6 units of lispro prior to meals and at bedtime and 30 units of Lantus twice daily. He will also be maintained on a supplemental sliding scale lispro before meals and at bedtime. His activity level will be increased and if he continues to feel well he will be discharged later today or tomorrow. 04/05/18: Umair is again awake and alert and has been eating well but continues to have significant abdominal pain accompanied by nausea when he is eating. He has been taking morphine as an analgesic before his meals to avoid developing the pain and this seems to be helping him. He reports that when he had his endoscopy procedure done 2 weeks ago he was diagnosed with Dimple-Sauer syndrome. To that and his medications will be increased to dosages more appropriate for treatment of his Dimple-Sauer syndrome. His diabetic control has remained satisfactory, and he denies fever, chills, diarrhea, cough , chest pain, urinary symptoms and rash. Reason For Visit: DKA Physical Exam Vital Signs: Temp Pulse Resp BP Pulse Ox 97.7 F 84 10 L 110/77 95 04/05/18 11:29 04/05/18 08:53 04/05/18 06:00 04/05/18 05:49 04/05/18 06:00 Intake & Output 04/04/18 04/05/18 04/06/18 06:59 06:59 06:59 Intake Total 48 3014 835 Output Total 300 1300 0 Balance -252 1714 835 Weight 63.7 kg 66 kg General appearance: PRESENT: no acute distress, cooperative Head exam: PRESENT: atraumatic, normocephalic Eye exam: PRESENT: conjunctiva pink, EOMI. ABSENT: conjunctival injection, nystagmus, periorbital swelling, scleral icterus Ear exam: PRESENT: normal external ear exam. ABSENT: bleeding, drainage Mouth exam: PRESENT: moist, tongue midline Neck exam: ABSENT: thyromegaly, tracheal deviation Respiratory exam: PRESENT: clear to auscultation aris, symmetrical, unlabored Cardiovascular exam: PRESENT: RRR. ABSENT: clicks, gallop, rubs Vascular exam: PRESENT: normal capillary refill. ABSENT: pallor GI/Abdominal exam: PRESENT: normal bowel sounds, soft, tenderness - Mild to moderate tenderness in the epigastric region to deep palpation Rectal exam: PRESENT: deferred Extremities exam: ABSENT: joint swelling, pedal edema Musculoskeletal exam: PRESENT: ambulatory, full ROM, normal inspection Neurological exam: PRESENT: alert, awake, oriented to person, oriented to place , oriented to time, oriented to situation, CN II-XII grossly intact. ABSENT: motor sensory deficit Psychiatric exam: PRESENT: appropriate affect, normal mood Skin exam: ABSENT: intact, jaundice, rash, urticaria Results Laboratory Results: 04/04/18 21:20 04/04/18 04/04/18 04/04/18 13:07 17:03 21:20 Sodium 134.1 L 129.3 L 133.3 L Potassium 4.8 4.9 4.4 Chloride 91 L 90 L 92 L Carbon Dioxide 27 29 29 Anion Gap 16 10 12 BUN 36 H 30 H 26 H Creatinine 0.90 0.81 0.76 Est GFR ( Amer) > 60 > 60 > 60 Est GFR (Non-Af Amer) > 60 > 60 > 60 Glucose 367 H 404 H* 139 H Calcium 8.9 8.7 9.1 Impressions: Chest X-Ray 04/03/18 22:33 IMPRESSION: No acute disease. Assessment & Plan - Diagnosis (1) Dimple-Sauer syndrome Is this a current diagnosis for this admission?: Yes Plan: Now that he is able to take oral medications, medications will be adjusted for control of Dimple-Sauer syndrome, this requires substantially higher doses of proton pump inhibitors and H2 blockers then are used for standard therapy. Will initiate increased dosing with Pepcid 20 mg p.o. before meals and at bedtime as well as Prevacid 30 mg p.o. before meals and at bedtime and will add Carafate suspension 1 g p.o. before meals and at bedtime as well as metoclopramide 10 mg p.o. before meals and at bedtime. Ongoing evaluation of this regiment will be undertaken during the remainder of his hospitalization. Changes to the regiment will be made as needed. We will continue to use IV morphine as needed for control of his abdominal pain until he is either no longer needed or converted to an oral medication. (2) Diabetic ketoacidosis Qualifiers: Diabetes mellitus type: type 1 Diabetes mellitus complication detail: without coma Qualified Code(s): E10.10 - Type 1 diabetes mellitus with ketoacidosis without coma Is this a current diagnosis for this admission?: Yes Plan: Patient was treated initially with an insulin drip and then subsequently added IV fluids containing dextrose to accompany his insulin drip. His blood sugar stabilized and his electrolytes returned to a normal balance over the first 12 hours of treatment. His aggressive therapy will be discontinued today and he will be started back on a diabetic diet with his usual insulin regimen as well as sliding scale supplemental insulin if needed. We will continue to monitor his blood sugar and will monitor his lab work on a daily basis for as long as he is hospitalized. Discharge may be planned as early as 04/04/2018 based upon his response to treatment of his abdominal pain caused by Dimple-Sauer syndrome. (3) Acute renal insufficiency Is this a current diagnosis for this admission?: Yes Plan: Patient's creatinine was noted to be elevated at 1.46 on admission and it has returned to normal levels after IV rehydration. This will be followed with daily laboratory for as long as patient is hospitalized. The patient's acute renal insufficiency was caused by dehydration secondary to nausea and vomiting. (4) Hyperkalemia Is this a current diagnosis for this admission?: Yes Plan: Patient's potassium was elevated as would be expected in acute diabetic ketoacidosis and has returned to normal values with rehydration and correction of the severe hyperglycemia. Potassium level will be monitored on a daily basis throughout the patient's hospitalization. The patient's hyperkalemia was caused by the metabolic changes of acute diabetic ketoacidosis. (5) Tachycardia Is this a current diagnosis for this admission?: Yes Plan: Patient was initially tachycardic however after IV fluid support to replace his vascular volume his tachycardia has resolved his vital signs have remained stable. Patient's vital signs will be monitored on an ongoing basis during the rest of his hospitalization. The patient's tachycardia was caused by dehydration. (6) Vomiting Qualifiers: Vomiting type: unspecified Vomiting Intractability: non-intractable Nausea presence: with nausea Qualified Code(s): R11.2 - Nausea with vomiting, unspecified Is this a current diagnosis for this admission?: Yes Plan: Patient's nausea and vomiting were treated with intravenous vascular volume replenishment as well as reduction and severe hyperglycemia. Additionally he was given antiemetics and he has responded well to this combination of therapies with the return of his appetite and strong desire to consume oral fluids. Patient will have as needed antiemetic available throughout the remainder of his hospital course. The patient's vomiting was a symptom of his more significant problem of his uncontrolled Dimple-Sauer syndrome. - Time Time Spent with patient: 35 or more minutes Anticipated discharge: Home Within: within 72 hours
[2018-04-05] MEDS ORDERED: CEFTRIAXONE SODIUM 1,000 MG in DEXTROSE 5%-WATER 50 ML IV SCH (12:00)
[2018-04-05] MEDS: SUCRALFATE SUSP 1 GM/10 ML UDCUP PO SCH ×3 (13:05→21:51)
[2018-04-05 14:51] LABS: WHITE BLOOD COUNT 6.3 10^3/uL (4.0-10.5)
[2018-04-05 15:04] LABS: HEMATOCRIT 36.8 % (37.9-51.0); MEAN CORPUSCULAR HEMOGLOBIN 30.7 pg (27.0-33.4); MEAN CORPUSCULAR HGB CONC 35.3 g/dL (32.0-36.0); PLATELET COUNT 323 10^3/uL (150-450); RED BLOOD COUNT 4.23 10^6/uL (4.35-5.55); RED CELL DISTRIBUTION WIDTH 13.7 % (11.5-14.0)
[2018-04-05 15:05] LABS: MEAN CORPUSCULAR VOLUME 87 fl (80-97)
[2018-04-05 15:09] LABS: AMYLASE 54 U/L (30-110); ANION GAP 9 (5-19); BLOOD UREA NITROGEN 20 mg/dL (7-20); CALCIUM 8.7 mg/dL (8.4-10.2); CARBON DIOXIDE 32 mmol/L (22-30); CHLORIDE 92 mmol/L (98-107); GLUCOSE 133 mg/dL (75-110); LIPASE 32.7 U/L (23-300); POTASSIUM 3.8 mmol/L (3.6-5.0); SODIUM 133.3 mmol/L (137-145)
[2018-04-06] MEDS: SUCRALFATE SUSP 1 GM/10 ML UDCUP PO SCH ×4 (08:24→22:21)
[2018-04-06] MEDS: LANSOPRAZOLE 30 MG TAB.RAP.DR PO SCH ×4 (08:24→22:21)
[2018-04-06] MEDS: FAMOTIDINE 20 MG TABLET PO SCH ×4 (08:24→22:22)
[2018-04-06] MEDS: INSULIN LISPRO 100 UNIT/ML 3 ML VIAL SUBCUT SCH ×5 (08:25→22:26)
[2018-04-06] MEDS: MORPHINE SULFATE 10 MG/ML INJ IV PRN (08:26)
[2018-04-06] MEDS: INSULIN GLARGINE,HUM.REC.ANLOG 1,000 UNIT/10 ML UNIT SUBCUT SCH (10:45)
[2018-04-06] MEDS: ENOXAPARIN SODIUM INJ 40 MG/0.4 ML DISP.SYRIN SUBCUT SCH ×2 (10:46→10:51)
[2018-04-06] MEDS: INSULIN LISPRO 100 UNIT/ML 3 ML VIAL SUBCUT PRN (11:19)
[2018-04-06 12:30] LABS: HEMOGLOBIN 13.3 g/dL (13.5-17.0); MEAN CORPUSCULAR HEMOGLOBIN 30.5 pg (27.0-33.4); MEAN CORPUSCULAR HGB CONC 34.9 g/dL (32.0-36.0); MEAN CORPUSCULAR VOLUME 87 fl (80-97); PLATELET COUNT 261 10^3/uL (150-450); RED BLOOD COUNT 4.36 10^6/uL (4.35-5.55); RED CELL DISTRIBUTION WIDTH 13.8 % (11.5-14.0); WHITE BLOOD COUNT 4.1 10^3/uL (4.0-10.5)
[2018-04-06] MEDS ORDERED: MORPHINE SULFATE 10 MG/5 ML ORAL SOLUTION UDCUP PO ONE (13:00)
--- NOTE | 2018-04-06 13:32 | PDOC DISCHARGE SUMMARY ---
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 Will initiate increased dosing with Pepcid 20 mg p.o. before meals and at bedtime as well as Prevacid 30 mg p.o. before meals and at bedtime and will add Carafate suspension 1 g p.o. before meals and at bedtime as well as metoclopramide 10 mg p.o. before meals and at bedtime. Ongoing evaluation of this regiment will be undertaken during the remainder of his hospitalization. Changes to the regiment will be made as needed. We will continue to use oral morphine after discharge giving 10 mg before meals 3 times daily. (2) Diabetic ketoacidosis Is this a current diagnosis for this admission?: Yes Summary: Patient was treated initially with an insulin drip and then subsequently added IV fluids containing dextrose to accompany his insulin drip. His blood sugar stabilized and his electrolytes returned to a normal balance over the first 12 hours of treatment. His aggressive therapy will be discontinued today and he will be started back on a diabetic diet with his usual insulin regimen as well as sliding scale supplemental insulin if needed. We will continue to monitor his blood sugar and will monitor his lab work on a daily basis for as long as he is hospitalized. Discharge may be planned as early as 04/04/2018 based upon his response to treatment of his abdominal pain caused by Dimple-Sauer syndrome. (3) Acute renal insufficiency Is this a current diagnosis for this admission?: Yes Summary: Patient's creatinine was noted to be elevated at 1.46 on admission and it has returned to normal levels after IV rehydration. This will be followed with daily laboratory for as long as patient is hospitalized. The patient's acute renal insufficiency was caused by dehydration secondary to nausea and vomiting. (4) Hyperkalemia Is this a current diagnosis for this admission?: Yes Summary: Patient's potassium was elevated as would be expected in acute diabetic ketoacidosis and has returned to normal values with rehydration and correction of the severe hyperglycemia. Potassium level will be monitored on a daily basis throughout the patient's hospitalization. The patient's hyperkalemia was caused by the metabolic changes of acute diabetic ketoacidosis. (5) Tachycardia Is this a current diagnosis for this admission?: Yes Summary: Patient was initially tachycardic however after IV fluid support to replace his vascular volume his tachycardia has resolved his vital signs have remained stable. Patient's vital signs will be monitored on an ongoing basis during the rest of his hospitalization. The patient's tachycardia was caused by dehydration. (6) Vomiting Is this a current diagnosis for this admission?: Yes Summary: Patient's nausea and vomiting were treated with intravenous vascular volume replenishment as well as reduction and severe hyperglycemia. Additionally he was given antiemetics and he has responded well to this combination of therapies with the return of his appetite and strong desire to consume oral fluids. Patient will have as needed antiemetic available throughout the remainder of his hospital course. The patient's vomiting was a symptom of his more significant problem of his uncontrolled Dimple-Sauer syndrome. - Additional Information Discharge Diet: As Tolerated, Diabetic Discharge Activity: Activity As Tolerated Prescriptions: Blood Glucose Control High,Low [Accu-Chek Guide L1-L2 Ctrl Kamala] 1 each MC DAILY 30 Days #1 each Blood Sugar Diagnostic [Accu-Chek Guide Test Strip] 1 each MC ACHS 30 Days #120 strip Blood-Glucose Meter [Accu-Chek Guide Monitor System] 1 each MC ONCE PRN 365 Days #1 each PRN Reason: Insulin Glargine,Hum.rec.anlog [Lantus Insulin 100 Unit/mL] 30 unit SUBCUT Q12 30 Days #3 insuln.pen Insulin Lispro [Humalog] 6 unit SQ QID 30 Days #2 cartridge Metoclopramide HCl 10 mg PO ACHS 30 Days #120 tablet Morphine Sulfate 5 ml PO AC 8 Days #120 ml Omeprazole 20 mg PO ACHS 15 Days #60 capsule. Sucralfate [Carafate Susp 1 gm/10 ml Udcup] 1 gm PO ACHS 15 Days #60 udc Home Medications: Blood Glucose Control High,Low [Accu-Chek Guide L1-L2 Ctrl Kamala] 1 each MC DAILY 30 Days #1 each 04/06/18 Blood Sugar Diagnostic [Accu-Chek Guide Test Strip] 1 each MC ACHS 30 Days #120 strip 04/06/18 Blood-Glucose Meter [Accu-Chek Guide Monitor System] 1 each MC ONCE PRN 365 Days #1 each 04/06/18 Insulin Glargine,Hum.rec.anlog [Lantus Insulin 100 Unit/mL] 30 unit SUBCUT Q12 30 Days #3 insuln.pen 04/06/18 Insulin Lispro [Humalog] 6 unit SQ QID 30 Days #2 cartridge 04/06/18 Metoclopramide HCl 10 mg PO ACHS 30 Days #120 tablet 04/06/18 Morphine Sulfate 5 ml PO AC 8 Days #120 ml 04/06/18 Omeprazole 20 mg PO ACHS 15 Days #60 capsule.dr 04/06/18 Sucralfate [Carafate Susp 1 gm/10 ml Udcup] 1 gm PO ACHS 15 Days #60 udc History of Present Illness Patient complains of: Abdominal pain with vomiting History of Present Illness: Patient is a 33 year-old male who presented with a 3 day history of nausea and vomiting and abdominal pain. He described the pain as a constant, non-radiating , deep aching of 8/10severity. He has not identified any aggravating or ameliorating factors for his abdominal pain, but admits that he has had similar pain in the past when he has developed diabetic ketoacidosis. He had associated nausea and vomiting with this symptoms, but he denies fever or chills. He is an insulin dependent diabetic who states he is currently taking his insulins as prescribed. 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 He was admitted to the ICU on an insulin drip and high volume IV fluids. Hospital Course Hospital Course: 04/04/18: Umair is awake and alert today and states he is hungry and would really like to have something to eat and drink. He feels like he is back to his usual self and his blood sugar has been under 200 for the last several readings. His insulin drip will be discontinued he will be started on a regular diabetic diet (carb 5) and will resume his usual insulin regiment with 6 units of lispro prior to meals and at bedtime and 30 units of Lantus twice daily. He will also be maintained on a supplemental sliding scale lispro before meals and at bedtime. His activity level will be increased and if he continues to feel well he will be discharged later today or tomorrow. 04/05/18: Umair is again awake and alert and has been eating well but continues to have significant abdominal pain accompanied by nausea when he is eating. He has been taking morphine as an analgesic before his meals to avoid developing the pain and this seems to be helping him. He reports that when he had his endoscopy procedure done 2 weeks ago he was diagnosed with Dimple-Sauer syndrome. To that and his medications will be increased to dosages more appropriate for treatment of his Dimple-Sauer syndrome. His diabetic control has remained satisfactory, and he denies fever, chills, diarrhea, cough , chest pain, urinary symptoms and rash. 04/06/18: Umair is doing much better today he has been able to eat and drink without any vomiting but does continue to complain of postprandial pain if he is not taking a pain medication prior to his ingestion of food. He agrees that he is significantly improved and will except being discharged to home with his usual insulin therapy in addition he will receive Reglan 10 mg p.o. before meals and at bedtime, Carafate suspension 1 g p.o. before meals and at bedtime, Prilosec 20 mg p.o. before meals and at bedtime and morphine sulfate suspension 10 mg per 5 mL; 10 mg p.o. before meals and at bedtime. His examination today is significantly improved from yesterday with less tenderness in his abdomen, normal vital signs and an essentially normal remainder of his physical exam. He will be discharged home in improved and stable condition after lunchtime today. Discharge planning will work with him to help obtain any of his medications and glucometer and testing supplies as they are able. Patient has very limited resources and says he essentially has no money. Physical Exam Vital Signs: Temp Pulse Resp BP Pulse Ox 97.5 F 88 18 129/89 H 99 04/06/18 08:41 04/06/18 08:41 04/06/18 08:41 04/06/18 08:41 04/06/18 08:41 Intake & Output 04/04/18 04/05/18 04/06/18 23:59 23:59 23:59 Intake Total 3062 1773 Output Total 900 701 Balance 2162 1072 Weight 63.7 kg 66 kg 68.6 kg General appearance: PRESENT: no acute distress, cooperative Head exam: PRESENT: atraumatic, normocephalic Eye exam: ABSENT: conjunctival injection, scleral icterus Ear exam: PRESENT: normal external ear exam. ABSENT: drainage Mouth exam: PRESENT: moist, tongue midline Neck exam: ABSENT: thyromegaly, tracheal deviation Respiratory exam: PRESENT: clear to auscultation aris, symmetrical, unlabored Cardiovascular exam: PRESENT: RRR. ABSENT: clicks, gallop, rubs Vascular exam: PRESENT: normal capillary refill. ABSENT: pallor GI/Abdominal exam: PRESENT: normal bowel sounds, soft, tenderness - Minimal epigastric tenderness to palpation without guarding or rebound tenderness Rectal exam: PRESENT: deferred Extremities exam: ABSENT: joint swelling, pedal edema Musculoskeletal exam: PRESENT: ambulatory, full ROM, normal inspection Neurological exam: PRESENT: alert, oriented to person, oriented to place, oriented to time, oriented to situation, CN II-XII grossly intact, normal gait. ABSENT: motor sensory deficit Psychiatric exam: PRESENT: appropriate affect, normal mood Skin exam: ABSENT: jaundice, rash, urticaria Results Laboratory Results: 04/06/18 12:08 04/05/18 14:42 04/05/18 04/05/18 04/05/18 14:42 14:42 14:42 WBC 6.3 RBC 4.23 L Hgb 13.0 L Hct 36.8 L MCV 87 D MCH 30.7 MCHC 35.3 RDW 13.7 Plt Count 323 Sodium 133.3 L Potassium 3.8 Chloride 92 L Carbon Dioxide 32 H Anion Gap 9 BUN 20 Creatinine 0.64 Est GFR ( Amer) > 60 Est GFR (Non-Af Amer) > 60 Glucose 133 H Calcium 8.7 Magnesium 2.1 Amylase 54 Lipase 32.7 TSH 6.51 H 04/06/18 04/06/18 12:08 12:08 WBC 4.1 RBC 4.36 Hgb 13.3 L Hct 38.0 MCV 87 MCH 30.5 MCHC 34.9 RDW 13.8 Plt Count 261 Sodium Potassium Chloride Carbon Dioxide Anion Gap BUN Creatinine Est GFR ( Amer) Est GFR (Non-Af Amer) Glucose Calcium Magnesium 2.0 Amylase Lipase TSH Impressions: Chest X-Ray 04/03/18 22:33 IMPRESSION: No acute disease. Qualifiers - * PATIENT BEING DISCHARGED WITH ANY OF THE FOLLOWING DIAGNOSIS: No Plan Discharge Plan: Discharged home in improved and stable condition Time Spent: Greater than 30 Minutes
[2018-04-06] MEDS: MORPHINE SULFATE 10 MG/5 ML ORAL SOLUTION UDCUP PO SCH (16:06)
[2018-04-07] MEDS: INSULIN GLARGINE,HUM.REC.ANLOG 300 UNIT/3 ML INSULN.PEN SUBCUT SCH ×2 (00:03→09:13)
[2018-04-07] MEDS: INSULIN LISPRO 100 UNIT/ML 3 ML VIAL SUBCUT SCH (08:11)
[2018-04-07] MEDS: MORPHINE SULFATE 10 MG/5 ML ORAL SOLUTION UDCUP PO SCH (08:16)
[2018-04-07] MEDS: FAMOTIDINE 20 MG TABLET PO SCH (08:16)
[2018-04-07] MEDS: SUCRALFATE SUSP 1 GM/10 ML UDCUP PO SCH (08:16)
[2018-04-07] MEDS: LANSOPRAZOLE 30 MG TAB.RAP.DR PO SCH (08:16)
[2018-04-07 08:50] VITALS: BP 134/99
[2018-04-07] MEDS: ENOXAPARIN SODIUM INJ 40 MG/0.4 ML DISP.SYRIN SUBCUT SCH (09:23)
== END 2018-04-07 09:22 | disposition home or self-care (01) | DRG 639 ==
LOC: ER 18:39 → EH 22:50 → ICU 04-04 00:50
PROVIDERS: ADMIT Family Medicine; ATTEND Family Medicine
DX: E10.10 Type 1 diabetes mellitus with ketoacidosis without coma (principal); E16.4 Increased secretion of gastrin; N28.9 Disorder of kidney and ureter, unspecified; E86.0 Dehydration; E87.5 Hyperkalemia; M67.40 Ganglion, unspecified site; F17.210 Nicotine dependence, cigarettes, uncomplicated; F12.90 Cannabis use, unspecified, uncomplicated; F11.90 Opioid use, unspecified, uncomplicated; Z60.2 Problems related to living alone; Z79.4 Long term (current) use of insulin; Z79.899 Other long term (current) drug therapy
CPT/HCPCS: 36415; 71045; 80048; 80053; 80307; 81001; 82150; 82803; 82962; 83036; 83690; 83735; 84443; 85025; 85027; 87040; 87077; 93005; 93010; 96361; 96374; 96375; 99291; J0610; J0696; J1650; J1815; J2270; J2405; J3490; S0028